=== PATIENT | male | born 1980 | race Caucasian/White ===

== ENCOUNTER 2020-12-29 06:41 | Inpatient (IN) | payer BC ==
[~2020-12-29] VITALS: Ht 172.7 cm; Wt 66.8 kg
[~2020-12-29 06:41] MED LIST: DOXYCYCLINE 10100 MG PO; NO HOME MEDICATIONS; NORCO 325 MG-51 TAB PO
[2020-12-29 07:19] LABS: BASO % 0.1 % (0.0-2.0); GRAN % 80.4 % (42.2-75.2); HEMATOCRIT 42.4 % (42.0-52.0); HEMOGLOBIN 15.3 g/dl (13.5-18.0); LYMPH # 1.4 (1.2-3.4); MEAN CELL VOLUME 90 fl (80.0-100.0); MEAN CORPUSCULAR HEMOGLOBIN 32 pg (27.0-31.0); MEAN CORPUSCULAR HGB CONC 36 g/dl (33.0-37.0); MEAN PLATELET VOLUME 9.4 fl (7.4-10.4); MONO # 1.3 (0.1-0.6); MONO % 9.2 % (1.7-9.3); PLATELET COUNT 247 K/mm3 (130-400); RED BLOOD COUNT 4.74 M/mm3 (4.20-5.60)
[2020-12-29 07:37] LABS: ALBUMIN 4.5 gm/dL (3.5-5.0); BILIRUBIN,TOTAL 1.6 mg/dL (0.0-1.0); CALCIUM 9.6 mg/dL (8.4-10.2); CREATININE, serum 0.77 (0.66-1.25); TOTAL PROTEIN 7.9 gm/dL (6.4-8.2)
[2020-12-29] MEDS ORDERED: NORCO 325 MG-51 TAB PO (11:20)
[2020-12-29 12:00] VITALS: BP 114/59; PULSE 72; TEMP 98
--- NOTE | 2020-12-29 12:13 | NUR ---
PT TO ROOM 322 PER BED WITH REPORT FROM [facility] [employer]. PT IS A/O X4, LUNGS CTA, BOWEL SOUNDS PRESENT. 3 LAP SITES CLOSED WITH GLUE AND BAINDAIDS OVER 3 SITES. PROVIDED TEACHING ON POTENTIAL NICOLE PAIN. PT VERBALIZED UNDERSTANDING. PT RESTING IN BED, ICE WATER PROVIDED. PT DENIES FURTHER NEEDS.
[2020-12-29 12:15] VITALS: BP 110/67; PULSE 72; TEMP 98
[2020-12-29 12:30] VITALS: BP 110/65; PULSE 71; TEMP 98
[2020-12-29 12:45] VITALS: BP 103/60; PULSE 57; TEMP 98
--- NOTE | 2020-12-29 14:26 | NUR ---
PATIENT HAS MET CRITERIA, EATING DRINKING VOIDING AND AMBULATING INDEPENDENTLY. REVIEWED DISCHARGE INSTRUCTIONS WITH PATIENT AND SPOUSE. QUESTIONS ANSWERED. PT LEFT AMBULATORY.
== END 2020-12-29 14:00 | disposition home or self-care (01) | DRG 343 ==
LOC: COL.ER 06:41 → SURG 08:55
PROVIDERS: Emergency Medicine; ADMIT Surgery
PROC: 0DTJ4ZZ Resection of Appendix, Percutaneous Endoscopic Approach (ICD-10-PCS; principal; 2020-12-29 10:30)
DX: K35.80 Unspecified acute appendicitis (principal)
CPT/HCPCS: J1100; J1885; J2405; J2543; J2704; J3010; J7120; Q9967